=== PATIENT | female | born 1960 | race Hispanic/Latino ===

== ENCOUNTER 2018-07-29 20:09 | Observation (INO) | payer SELFPAY ==
[2018-07-29 20:26] LABS: #Basophils 0.1 thou/uL (0.0-0.2); #Eosinphils 0.3 thou/uL (0.0-0.7); #Lymphocytes 3.4 thou/uL (1.20-3.40); #Monocytes 0.8 thou/uL (0.11-0.59); %Basophils 0.7 % (0.0-1.0); %Eosinophils 2.9 % (0.0-10.0); %Lymphocytes 32.2 % (21.0-51.0); %Monocytes 7.2 % (0.0-10.0); Hemoglobin 14.5 g/dL (12.0-16.0); Mean Corpuscular HGB CONC 36.3 g/dL (32.0-36.0); Mean Corpuscular Hemoglobin 33.7 pg (27.0-31.0); Mean Corpuscular Volume 92.8 fL (78.0-98.0); Mean Platelet Volume 7.3 fL (7.4-10.4); Platelet Count 282 thou/uL (130-400); Red Blood Cell (RBC) Count 4.31 mill/uL (4.20-5.40); White Blood Cell (WBC) Count 10.5 thou/uL (4.8-10.8)
--- NOTE | 2018-07-29 20:31 | RAD ---
RADIOGRAPH CHEST 1 VIEW: 07/29/18 HISTORY: 57-year-old female with chest pain and hypertension. FINDINGS: The thoracic aorta is tortuous and ectatic. There is no evidence of air space density, pneumothorax, or pulmonary edema. The lateral costophrenic angles are sharp. IMPRESSION: 1) No acute pulmonary findings. 2) Ectasia of thoracic aorta. jn [] POS: [facility]
[2018-07-29 20:50] LABS: ALT (SGPT) 32 U/L (8-55); AST (SGOT) 27 U/L (5-34); Albumin 4.4 g/dL (3.5-5.0); Alkaline Phosphatase 104 U/L (40-150); Anion Gap 14 mmol/L (10-20); BUN (Urea Nitrogen) 13 mg/dL (9.8-20.1); Bilirubin, Total 0.5 mg/dL (0.2-1.2); CK (CPK) 103 U/L (29-168); Calc. Creatinine Clearance 0 mL/min (70-130); Calcium 9.6 mg/dL (7.8-10.44); Carbon Dioxide 22 mmol/L (22-29); Chloride 108 mmol/L (98-107); Estimated GFR-MDRD 69; Globulin 3.2 g/dL (2.4-3.5); Glucose 172 mg/dL (70-105); Potassium 3.5 mmol/L (3.5-5.1); Protein, Total 7.6 g/dL (6.0-8.3); Sodium 140 mmol/L (136-145)
[2018-07-29 20:54] LABS: CKMB 1.3 ng/mL (0-6.6); Troponin I Less than 0.010 ng/mL (< 0.028)
[2018-07-29] MEDS ORDERED: Nitroglycerin 0.4 MG TAB (25 Tab Bottle) ONE (20:56)
[2018-07-29] MEDS ORDERED: Acetaminophen 325 MG TAB ONE (20:56)
[2018-07-29] MEDS ORDERED: Ondansetron HCl/PF 4 MG/2 ML Vial IVP PRN (23:08)
[2018-07-29] MEDS ORDERED: Acetaminophen 325 MG TAB PO PRN (23:08)
[2018-07-29] MEDS ORDERED: Ondansetron ODT 4 MG TAB SL PRN (23:08)
[2018-07-29 23:36] LABS: Troponin I Less than 0.010 ng/mL (< 0.028)
--- NOTE | 2018-07-29 23:40 | PDOC.FPRHP ---
- History of Present Illness Chief Complaint: chest pain History of Present Illness: 57 yo F with PMH HTN, shingles presents to ED with chest pain of 3 days duration. Pain started while resting, described as pressure-like in mid-sternum/ left chest. 9/10 in severity, worse with movement, better with rest. No radiation. Associated nausea and diaphoresis. Pt. endorses headache and blurry vision that started at the same time. Daughter says pt. is not compliant with meds. Also reports mid-back pain, sharp, worse with movement. Has had prior episodes of this back pain in the past. Patient says this back pain is distinctly different from her chest pain. Her job involves cleaning facilities. She also has a 2 year history of shingles and experiences baseline neuropathic pain which is controlled with carbamazepine and gabapentin. Pt. reports she completed a course of valacyclovir in the past. She states chest pain is different from shingles pain. ED Course: Given SL nitro, ASA, tylenol - Allergies/Adverse Reactions Allergies Allergy/AdvReac Type Severity Reaction Status Date / Time No Known Drug Allergies Allergy Verified 07/29/18 23:48 - Home Medications Medication Instructions Recorded Confirmed Type Enalapril Maleate [Vasotec] 10 mg PO BID 07/29/18 07/29/18 History Pregabalin [Lyrica] 75 mg PO HS 07/29/18 07/29/18 History carBAMazepine 200 mg PO TID 07/29/18 07/29/18 History Cyclobenzaprine HCl 5 mg PO TID PRN 10 Days #30 tablet 07/30/18 Rx - History PMHx:HTN, HLD, HyperTG, Shingles PSHx: CSX x3, partial hysterectomy FHx: HTN, Lung CA Social:denies tobacco, etoh, drugs - Review of Systems General: denies: fever/chills, weight/appetite/sleep changes Eyes: reports: vision changes (blurry vision). denies: eye pain ENT: denies: nasal congestion, rhinorrhea Respiratory: reports: shortness of breath. denies: cough, congestion Cardiovascular: reports: chest pain. denies: palpitation, edema Gastrointestinal: reports: nausea. denies: vomiting, diarrhea, constipation, abdominal pain Skin: denies: rashes, lesions Musculoskeletal: reports: pain, stiffness, arthritis/arthralgias Neurological: denies: numbness, seizure Psychological: denies: anxiety, depression - Vital signs BP: [128/84] HR: [77] RR: [16] Tmax: [98] Pox: [96]% on [RA] Wt: [74.11] - Physical Exam Constitutional: NAD, awake, alert and oriented HEENT: normocephalic and atraumatic, PERRLA, EOMI, conjunctiva clear, grossly normal vision, MMM Neck: supple, FROM Chest: other -Chest: tender to palpation over mid-sternum and left chest. back: TTP over right paraspinal muscles in mid-thoracic area Heart: RRR, pulses present Lungs: CTAB, no respiratory distress, good air movement Abdomen: soft, non-tender, no masses/distention Musculoskeletal: normal structure, normal tone, ROM grossly normal Neurological: no focal deficit, CN II-XII intact Skin: no rash/lesions, good turgor, capillary refill <2 seconds Heme/Lymphatic: no purpura, no petechia Psychiatric: normal mood and affect, good judgment and insight FMR H&P: Results - Labs Result Diagrams: 07/29/18 20:17 07/30/18 02:01 Lab results: WBC 10.5 thou/uL (4.8-10.8) 07/29/18 20:17 Hgb 14.5 g/dL (12.0-16.0) 07/29/18 20:17 Hct 40.0 % (36.0-47.0) 07/29/18 20:17 MCV 92.8 fL (78.0-98.0) 07/29/18 20:17 Plt Count 282 thou/uL (130-400) 07/29/18 20:17 Neutrophils % 57.0 % (42.0-75.0) 07/29/18 20:17 Sodium 140 mmol/L (136-145) 07/29/18 20:17 Potassium 3.5 mmol/L (3.5-5.1) 07/29/18 20:17 Chloride 108 mmol/L (98-107) H 07/29/18 20:17 Carbon Dioxide 22 mmol/L (22-29) 07/29/18 20:17 BUN 13 mg/dL (9.8-20.1) 07/29/18 20:17 Creatinine 0.85 mg/dL (0.6-1.1) 07/29/18 20:17 Glucose 172 mg/dL (70-105) H 07/29/18 20:17 Calcium 9.6 mg/dL (7.8-10.44) 07/29/18 20:17 Total Bilirubin 0.5 mg/dL (0.2-1.2) 07/29/18 20:17 AST 27 U/L (5-34) 07/29/18 20:17 ALT 32 U/L (8-55) 07/29/18 20:17 Alkaline Phosphatase 104 U/L (40-150) 07/29/18 20:17 Creatine Kinase 103 U/L (29-168) 07/29/18 20:17 CK-MB (CK-2) 1.3 ng/mL (0-6.6) 07/29/18 20:17 Serum Total Protein 7.6 g/dL (6.0-8.3) 07/29/18 20:17 Albumin 4.4 g/dL (3.5-5.0) 07/29/18 20:17 - EKG Interpretation EKG: QT prolongation, no ST elevations - Radiology Interpretation Chest x-ray Status: image reviewed by me, report reviewed by me FMR H&P: A/P - Problem List (1) Chest pain Status: Acute Code(s): R07.9 - CHEST PAIN, UNSPECIFIED (2) Chronic hypertension Status: Acute Code(s): I10 - ESSENTIAL (PRIMARY) HYPERTENSION (3) Shingles (herpes zoster) polyneuropathy Status: Acute Code(s): B02.23 - POSTHERPETIC POLYNEUROPATHY (4) Musculoskeletal back pain Status: Acute Code(s): M54.9 - DORSALGIA, UNSPECIFIED (5) CKD (chronic kidney disease) stage 2, GFR 60-89 ml/min Status: Acute Code(s): N18.2 - CHRONIC KIDNEY DISEASE, STAGE 2 (MILD) - Plan 57 yo F admitted for typical chest pain, ACS r/o. 1. Typical chest pain likely 2/2 HTN vs. MSK -BPs in ED were in 170s -Job is physically demanding -given ASA, SL nitro, tylenol in ED -HEART 4 -Will order NST in AM to r/o ACS; npo at midnight -Will order FLP, A1c to risk stratify -Will order TSH -Trops (-) x2, continue to trend -Tylenol for pain for now b/c likely MSK in origin, but can add on nitro if pt' s pain is not resolved 2. HTN -BPs down to 120s with nitro -Stable, will resume home vasotec -Continue to monitor 3. Hx of shingles -Current pain improved from baseline pain -Will continue home pregabalin & carbamazepine 4. Back pain likely 2/2 to musculoskeletal etiology -Tylenol for pain -Can consider flexeril if pain does not improve 5. CKD 2 -Will continue to monitor with AM BMP Dispo: <2 nights pending negative NST FMR H&P: Upper Level - Pertinent history 57 yo HF with a PMH of HTN p/w intermittent substernal CP that began 3 days ago and acutely worsened today. Pt describes CP as pressure-like, substernal, exertional, without radiation and relieved with nitroglycerin SL. Pt endorses SOB with episodes. Pt recently moved from [place] 2 months ago and saw PCP there and given enalapril for HTN, intermittently compliant. 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 - Pertinent findings Vitals: BP 136/86, HR 80, R 18, O2 99% on RA, Wt 72kg Gen: well developed in NAD CV: mild TTP over left intercostals, RRR, no MMR appreciated Resp: normal effort, CTAB Abd: BS+, soft, NTTP Ext: no cyanosis or edema - Plan Date/Time: 07/29/18 3991 I, Gerald Elmore MD PGY3, have evaluated this patient and agree with findings/ plan as outlined by statistics intern resident. Pertinent changes/additions are listed here. 1. Typical chest pain 2/2 stable angina vs MSK strain -Pt presents and complains of substernal pressure that is exertional and relieved by nitroglycerin SL. Pt's history and physical more consistent with MSK strain, however, meets criteria of typical CP as described above. -EKG shows NSR rate 91, no ST changes but prolonged QT at 422ms. Avoid drugs that prolong QT. -HEART score 4, admit to telemetry observation. With no previous work up, will plan for stress test in AM. -Obtain cardiac enzymes x3. Nitro PRN. -Risk stratify with FLP, TSH, and A1c. 2. HTN -Resume home medication. -PRN hydralazine available for BP > 160/110. 3. KAY vs CKD2 -Unknown history. -Oral hydration, continue to trend. 4. Hyperglycemia -A1c per above. PPx: Lovenox for VTE, no GI indicated. CODE status: FULL disposition: Telemetry observation for anticipated length of stay less than two midnights, pending clinical course. Attending Addendum - Attending Addendum Date/Time: 07/30/18 0829 I personally evaluated the patient at 1245 and discussed the management with Dr. Peñaloza/Ramírez. H&P repeated by me. I agree with the History, Examination, Assessment and Plan documented above with any addition or exceptions noted below. 57 yo HM with PMH of HTN, HLD, age >55 who presents with chest pain described as chest pressure with associated nausea and diaphoresis. Resolved at the time of my exam. EKG shows NSR without ST changes. Trops neg x 3, Stress test negative. Musculoskeletal chest pain- home on NSAIDs. Continue home meds. Stable for discharge.
[2018-07-29 23:44] VITALS: BMI 28.0
[2018-07-30 02:36] LABS: Hemoglobin A1c 5.3 % (4.0-6.0)
[2018-07-30 02:40] LABS: Troponin I Less than 0.010 ng/mL (< 0.028)
[2018-07-30 03:04] LABS: Anion Gap 13 mmol/L (10-20); BUN (Urea Nitrogen) 15 mg/dL (9.8-20.1); Calc. Creatinine Clearance 93 mL/min (70-130); Calcium 9.5 mg/dL (7.8-10.44); Carbon Dioxide 23 mmol/L (22-29); Cardiac Risk 6.4 (Less than 4.5); Chloride 110 mmol/L (98-107); Cholesterol 219 mg/dl (< 200 Desired); Estimated GFR-MDRD 76; Glucose 133 mg/dL (70-105); HDL Cholesterol 34 mg/dL (>60 Neg Risk); LDL Cholesterol, Calculated 140 mg/dL; Potassium 3.5 mmol/L (3.5-5.1); Sodium 142 mmol/L (136-145); Triglycerides 226 mg/dL (Less than 150)
--- NOTE | 2018-07-30 05:41 | PDOC.FM ---
- Subjective Subjective: Patient reports chest pain has greatly improved compared to last night. Now has minimal chest pain that is worsened by movement. Denies nausea, vomiting, shortness of breath. Awaiting stress test. - Objective MAR Reviewed: Yes Vital Signs & Weight: Vital Signs (12 hours) Temp Pulse Resp BP Pulse Ox 07/30/18 04:10 97.5 F L 62 18 142/77 H 98 07/29/18 22:50 98.4 F 74 18 138/77 96 07/29/18 22:48 98.4 F 74 18 Weight Weight 74.117 kg Result Diagrams: 07/29/18 20:17 07/30/18 02:01 Phys Exam - Physical Examination Constitutional: NAD HEENT: moist MMs Respiratory: no wheezing, no rales, no rhonchi, clear to auscultation bilateral Cardiovascular: RRR, no significant murmur Gastrointestinal: soft, non-tender, no distention, positive bowel sounds Musculoskeletal: no edema Neurological: non-focal, moves all 4 limbs Psychiatric: normal affect Dx/Plan (1) Chest pain Code(s): R07.9 - CHEST PAIN, UNSPECIFIED Status: Acute (2) Chronic hypertension Code(s): I10 - ESSENTIAL (PRIMARY) HYPERTENSION Status: Acute (3) Musculoskeletal back pain Code(s): M54.9 - DORSALGIA, UNSPECIFIED Status: Acute (4) Shingles (herpes zoster) polyneuropathy Code(s): B02.23 - POSTHERPETIC POLYNEUROPATHY Status: Acute (5) CKD (chronic kidney disease) stage 2, GFR 60-89 ml/min Code(s): N18.2 - CHRONIC KIDNEY DISEASE, STAGE 2 (MILD) Status: Acute - Plan Plan: 57 yo F admitted for typical chest pain, ACS r/o. Typical chest pain likely 2/2 HTN vs. MSK -BPs in ED were in 170s -given ASA, SL nitro, tylenol in ED -HEART 4 - Plan for stress test today -Trops neg x3 -Tylenol prn pain HTN -BPs down in 140s this am, were 170s on admission -On home vasotec -Continue to monitor Hyperlipidemia - ASCVD risk 6.5%. Will consider starting moderate intensity statin. Hx of shingles -Continue home pregabalin & carbamazepine Back pain likely 2/2 to musculoskeletal etiology -Tylenol for pain CKD 2, stable Dispo: Home pending negative stress test
[2018-07-30] MEDS ORDERED: ADENOSINE 60 MG/20 ML VIAL ONE (08:24)
[2018-07-30] MEDS ORDERED: Enoxaparin Sodium 40 MG/0.4 ML SYRINGE SC SCH (09:00)
[2018-07-30] MEDS: carBAMazepine 200 MG TAB PO SCH ×2 (12:45)
[2018-07-30 12:57] VITALS: BP 176/84; TEMP 98.4
--- NOTE | 2018-07-30 14:45 | NM ---
MYOCARDIAL PERFUSION EVALUATION: INDICATION: Chest pain. RADIOPHARMACEUTICAL: 30.5 mCi technetium-99m sestamibi IV with stress and 9 mCi technetium-99m sestamibi IV with rest. FINDINGS: When comparing the rest and stress images, no reversible myocardial perfusion defect is evident. Ther e is normal wall motion and thickening. The estimated LVEF is 66%. IMPRESSION: Normal myocardial perfusion evaluation. POS: [facility]
[2018-07-30] MEDS ORDERED: Pregabalin 75 MG CAP PO SCH (21:00)
--- NOTE | 2018-07-31 18:38 | DIS ---
DATE OF ADMISSION: 07/29/2018 DATE OF DISCHARGE: 07/30/2018 RESIDENT: Mia Asif D.O. ADMITTING ATTENDING: Dr. Alison Olson. DISCHARGE ATTENDING: Dr. Alison Olson CONSULTATIONS: None. PROCEDURES: Nuclear medicine stress test on 07/30/2018. PRIMARY DIAGNOSIS: 1. Typical chest pain. 2. Acute coronary syndrome, rule out. SECONDARY DIAGNOSES: 1. Hypertension. 2. Hyperlipidemia. 3. Shingles. 4. Back pain. DISCHARGE MEDICATIONS: 1. Carbamazepine 200 mg p.o. t.i.d. 2. Lyrica 75 mg p.o. at bedtime. 3. Enalapril maleate 10 mg p.o. b.i.d. 4. Cyclobenzaprine 5 mg p.o. t.i.d. p.r.n. HOSPITAL COURSE: The patient presented to the ER with complaint of chest pain for the past 3 days. The patient described the symptoms that correlated with typical chest pain. The patient was admitted for ACS rule out. She was given nitro in the ER for high blood pressure in the 170s systolic. Bloo d pressure responded appropriately and was not needed afterwards. Cardiac causes were ruled out with negative troponins, unremarkable EKG. Stress test was negative as well. The patient was discharged with chest pain symptoms resolved. May consider adding a statin for ASCVD risk in the future. DISPOSITION: Stable. DISCHARGE INSTRUCTIONS: 1. Location: Home. 2. Diet: Heart healthy. 3. Activity: As tolerated. 4. Follow up with PCP in 1 week.
--- NOTE | 2018-08-05 19:13 | EKG ---
Test Reason : Blood Pressure : / mmHG Vent. Rate : 081 BPM Atrial Rate : 081 BPM P-R Int : 164 ms QRS Dur : 080 ms QT Int : 422 ms P-R-T Axes : 062 036 042 degrees QTc Int : 490 ms Normal sinus rhythm Prolonged QT Abnormal ECG Confirmed by MALIHA PRAKASH M.D. ([id number]), design editor LI ERWIN ([id number] on 08/05/2018 7:13:03 PM Referred By: MARLY Confirmed By:MALIHA PRAKASH M.D.
== END 2018-07-30 15:53 | disposition home or self-care (01) ==
LOC: ERS 20:09 → 2SW 21:24
PROVIDERS: ADMIT Family Medicine; ATTEND Family Medicine
DX: R07.9 Chest pain, unspecified (principal); E78.5 Hyperlipidemia, unspecified; B02.9 Zoster without complications; I12.9 Hypertensive chronic kidney disease with stage 1 through stage 4 chronic kidney disease, or unspecified chronic kidney disease; N18.2 Chronic kidney disease, stage 2 (mild); M54.9 Dorsalgia, unspecified; Z79.899 Other long term (current) drug therapy
CPT/HCPCS: 36415; 71045; 78452; 80048; 80053; 80061; 82550; 82553; 83036; 84443; 84484; 85025; 85379; 93005; 93017; A9500; G0378; J0153; J1650